=== PATIENT | male | born 1980 | race Caucasian/White ===

== ENCOUNTER 2017-03-21 22:50 | Emergency (ER) | payer SELFPAY ==
[~2017-03-21 22:50] MED LIST: Lidocaine 1% 20 ML MDV ONE
== END 2017-03-21 23:58 | disposition home or self-care (01) ==
LOC: MADERS 22:50
DX: T16.2XXA Foreign body in left ear, initial encounter (principal); I10 Essential (primary) hypertension; F32.9 Major depressive disorder, single episode, unspecified; F90.9 Attention-deficit hyperactivity disorder, unspecified type; Z87.891 Personal history of nicotine dependence; Z79.899 Other long term (current) drug therapy
CPT/HCPCS: 99282; J2001